=== PATIENT | male | born 1935 | race Caucasian/White ===

== ENCOUNTER 2022-06-28 23:17 | Inpatient (IN) | payer MEDICARE, OTHER ==
[2022-06-29 02:00] VITALS: BMI 24.5
[2022-06-29] MEDS ORDERED: Acetaminophen 325 MG TAB PO PRN (02:29)
[2022-06-29] MEDS ORDERED: Ondansetron PF 4 MG/2 ML Vial IVP PRN (02:29)
[2022-06-29 03:19] LABS: #Eosinphils 0.1 thou/uL (0.0-0.7); #Lymphocytes 1.2 thou/uL (1.20-3.40); #Monocytes 1.2 thou/uL (0.11-0.59); #Neutrophils 6.9 thou/uL (1.40-6.50); %Basophils 0.2 % (0.0-1.0); %Eosinophils 0.6 % (0.0-10.0); %Lymphocytes 12.7 % (21.0-51.0); %Monocytes 12.9 % (0.0-10.0); %Neutrophils 73.6 % (42.0-75.0); Hemoglobin 12.8 g/dL (14.0-18.0); Mean Corpuscular HGB CONC 34.6 g/dL (32.0-36.0); Mean Corpuscular Volume 92.5 fL (78.0-98.0); Mean Platelet Volume 8.4 fL (7.4-10.4); Platelet Count 177 thou/uL (130-400); RBC Distribution Width 11.9 % (11.5-14.5); Red Blood Cell (RBC) Count 3.99 mill/uL (4.70-6.10); White Blood Cell (WBC) Count 9.4 thou/uL (4.8-10.8)
[2022-06-29] MEDS: Cefepime 2 GM in Sodium Chloride 0.9% 100 ML IVPB SCH ×2 (03:57→14:06)
[2022-06-29] MEDS: Vancomycin 1.5 GRAM/300 ML BAG 1.5 GM in Premix Bag 1 BAG IVPB SCH (03:57)
[2022-06-29 04:18] LABS: Anion Gap 14 mmol/L (10-20); BUN (Urea Nitrogen) 14 mg/dL (8.4-25.7); Calc. Creatinine Clearance 66 mL/min (70-130); Calcium 9.4 mg/dL (7.8-10.44); Carbon Dioxide 22 mmol/L (23-31); Chloride 104 mmol/L (98-107); Estimated GFR 68; Glucose 125 mg/dL (83-110); Potassium 3.3 mmol/L (3.5-5.1); Sodium 137 mmol/L (136-145)
[2022-06-29] MEDS ORDERED: Labetalol HCl 100 MG/20 ML VIAL SLOW IVP SCH (04:30)
[2022-06-29] MEDS: Cyclobenzaprine 10 MG TAB PO SCH ×3 (04:33→20:20)
[2022-06-29] MEDS: Ampicillin 2 GM in Sodium Chloride 0.9% 100 ML IVPB SCH ×5 (05:14→20:18)
[2022-06-29] MEDS ORDERED: Potassium Chloride 20 MEQ TAB PO SCH (06:15)
[2022-06-29] MEDS ORDERED: Morphine 4 MG/ML VIAL SLOW IVP SCH (06:15)
[2022-06-29] MEDS: Famotidine 20 MG TAB PO SCH ×2 (08:56→20:19)
[2022-06-29] MEDS: Lisinopril 20 MG TAB PO SCH (08:56)
[2022-06-29] MEDS: Docusate 100 MG CAP PO SCH ×2 (08:56→20:19)
[2022-06-29] MEDS: predniSONE 5 MG TAB PO SCH (08:58)
[2022-06-29] MEDS: Polyethylene Glycol 3350 17 GM Packet PO SCH (08:58)
[2022-06-29] MEDS ORDERED: Enoxaparin Sodium 40 MG/0.4 ML SYRINGE SC SCH (09:00)
[2022-06-29] MEDS: Multivitamin W/ Minerals 1 TAB PO SCH (09:04)
[2022-06-29] MEDS: Cyanocobalamin (Vitamin B-12) 1,000 MCG TAB PO SCH (09:05)
[2022-06-29] MEDS: Ascorbic Acid 500 mg Chewable Tablet PO SCH (09:06)
[2022-06-29] MEDS ORDERED: Ketorolac Tromethamine 30 MG/ML VIAL IVP SCH (09:15)
[2022-06-29] MEDS: Morphine 4 MG/ML VIAL SLOW IVP PRN (09:15)
[2022-06-29] MEDS ORDERED: hydrALAZINE 20 MG/ML VIAL SLOW IVP PRN (13:10)
[2022-06-29] MEDS ORDERED: hydrALAZINE 20 MG/ML VIAL SLOW IVP SCH (13:15)
[2022-06-29 13:29] LABS: CSF, Glucose 75 mg/dl (40-70); CSF, Protein 46 mg/dL (15-40)
[2022-06-29 13:34] LABS: CSF Source CSF; Clarity Clear (Clear); Tube # 4
[2022-06-29] MEDS: Ketorolac Tromethamine 30 MG/ML VIAL IVP SCH ×2 (14:51→20:19)
[2022-06-29] MEDS: Tamsulosin HCl 0.4 MG CAP PO SCH (20:20)
[2022-06-30] MEDS: Ampicillin 2 GM in Sodium Chloride 0.9% 100 ML IVPB SCH ×4 (00:36→14:02)
[2022-06-30] MEDS: Cefepime 2 GM in Sodium Chloride 0.9% 100 ML IVPB SCH ×2 (02:49→15:43)
[2022-06-30] MEDS: Ketorolac Tromethamine 30 MG/ML VIAL IVP SCH ×4 (02:49→21:54)
[2022-06-30] MEDS: Morphine 4 MG/ML VIAL SLOW IVP PRN (03:09)
[2022-06-30] MEDS: Vancomycin 1.5 GRAM/300 ML BAG 1.5 GM in Premix Bag 1 BAG IVPB SCH (03:23)
[2022-06-30 05:12] LABS: #Eosinphils 0.1 thou/uL (0.0-0.7); #Lymphocytes 1.1 thou/uL (1.20-3.40); #Monocytes 0.8 thou/uL (0.11-0.59); #Neutrophils 6.2 thou/uL (1.40-6.50); %Basophils 0.3 % (0.0-1.0); %Eosinophils 0.8 % (0.0-10.0); %Lymphocytes 13.6 % (21.0-51.0); %Monocytes 10.1 % (0.0-10.0); %Neutrophils 75.3 % (42.0-75.0); Hemoglobin 12.4 g/dL (14.0-18.0); Mean Corpuscular HGB CONC 34.3 g/dL (32.0-36.0); Mean Corpuscular Hemoglobin 31.7 pg (27.0-31.0); Mean Corpuscular Volume 92.6 fL (78.0-98.0); Platelet Count 183 thou/uL (130-400); RBC Distribution Width 11.9 % (11.5-14.5); White Blood Cell (WBC) Count 8.2 thou/uL (4.8-10.8)
[2022-06-30 05:34] LABS: Anion Gap 11 mmol/L (10-20); BUN (Urea Nitrogen) 13 mg/dL (8.4-25.7); Calc. Creatinine Clearance 73 mL/min (70-130); Calcium 9.1 mg/dL (7.8-10.44); Carbon Dioxide 21 mmol/L (23-31); Chloride 107 mmol/L (98-107); Estimated GFR 77; Glucose 107 mg/dL (83-110); Magnesium 1.9 mg/dL (1.6-2.6); Sodium 136 mmol/L (136-145)
[2022-06-30] MEDS: Cyclobenzaprine 10 MG TAB PO SCH ×3 (05:46→21:45)
[2022-06-30] MEDS ORDERED: Potassium Chloride 20 MEQ TAB PO SCH (09:00)
[2022-06-30] MEDS: Polyethylene Glycol 3350 17 GM Packet PO SCH (09:51)
[2022-06-30] MEDS: Lisinopril 20 MG TAB PO SCH (09:53)
[2022-06-30] MEDS: Ascorbic Acid 500 mg Chewable Tablet PO SCH (09:53)
[2022-06-30] MEDS: predniSONE 5 MG TAB PO SCH (09:54)
[2022-06-30] MEDS: Docusate 100 MG CAP PO SCH ×2 (09:54→21:45)
[2022-06-30] MEDS: Cyanocobalamin (Vitamin B-12) 1,000 MCG TAB PO SCH (09:54)
[2022-06-30] MEDS: Famotidine 20 MG TAB PO SCH ×2 (09:55→21:45)
[2022-06-30] MEDS: Multivitamin W/ Minerals 1 TAB PO SCH (09:55)
[2022-06-30] MEDS: Potassium Chloride 20 MEQ TAB PO SCH (17:58)
[2022-06-30] MEDS: Tamsulosin HCl 0.4 MG CAP PO SCH (21:45)
[2022-07-01 03:19] LABS: #Eosinphils 0.1 thou/uL (0.0-0.7); #Lymphocytes 1.3 thou/uL (1.20-3.40); #Monocytes 0.7 thou/uL (0.11-0.59); #Neutrophils 5.7 thou/uL (1.40-6.50); %Basophils 0.5 % (0.0-1.0); %Eosinophils 1.6 % (0.0-10.0); %Lymphocytes 16.1 % (21.0-51.0); %Monocytes 9.1 % (0.0-10.0); %Neutrophils 72.7 % (42.0-75.0); Hemoglobin 11.5 g/dL (14.0-18.0); Mean Corpuscular HGB CONC 33.9 g/dL (32.0-36.0); Mean Corpuscular Hemoglobin 31.2 pg (27.0-31.0); Mean Corpuscular Volume 92.1 fL (78.0-98.0); Mean Platelet Volume 7.6 fL (7.4-10.4); Platelet Count 179 thou/uL (130-400); RBC Distribution Width 11.9 % (11.5-14.5); Red Blood Cell (RBC) Count 3.68 mill/uL (4.70-6.10); White Blood Cell (WBC) Count 7.9 thou/uL (4.8-10.8)
[2022-07-01 03:37] LABS: Vancomycin, Trough 8.1 ug/mL
[2022-07-01 03:45] LABS: Anion Gap 13 mmol/L (10-20); BUN (Urea Nitrogen) 25 mg/dL (8.4-25.7); Calc. Creatinine Clearance 61 mL/min (70-130); Calcium 9.1 mg/dL (7.8-10.44); Carbon Dioxide 20 mmol/L (23-31); Chloride 107 mmol/L (98-107); Estimated GFR 61; Glucose 110 mg/dL (83-110); Magnesium 2.1 mg/dL (1.6-2.6); Potassium 3.7 mmol/L (3.5-5.1); Sodium 136 mmol/L (136-145)
[2022-07-01] MEDS: Ketorolac Tromethamine 30 MG/ML VIAL IVP SCH ×2 (04:41→11:07)
[2022-07-01] MEDS: Cyclobenzaprine 10 MG TAB PO SCH ×2 (07:42→14:29)
[2022-07-01] MEDS: Polyethylene Glycol 3350 17 GM Packet PO SCH (09:47)
[2022-07-01] MEDS: Multivitamin W/ Minerals 1 TAB PO SCH (09:47)
[2022-07-01] MEDS: predniSONE 5 MG TAB PO SCH (09:48)
[2022-07-01] MEDS: Ascorbic Acid 500 mg Chewable Tablet PO SCH (09:48)
[2022-07-01] MEDS: Lisinopril 20 MG TAB PO SCH (09:48)
[2022-07-01] MEDS: Cyanocobalamin (Vitamin B-12) 1,000 MCG TAB PO SCH (09:48)
[2022-07-01] MEDS: Famotidine 20 MG TAB PO SCH (09:49)
[2022-07-01] MEDS: Potassium Chloride 20 MEQ TAB PO SCH (09:49)
[2022-07-01] MEDS: Docusate 100 MG CAP PO SCH (09:50)
[2022-07-01 15:58] VITALS: TEMP 97.2
[2022-07-01 19:59] VITALS: BP 149/73
== END 2022-07-01 16:15 | disposition home or self-care (01) | DRG 552 ==
LOC: 2SW 23:17 → OBSVTOIN 06-29 18:21
PROVIDERS: ADMIT Internal Medicine; ATTEND Family Medicine
PROC: 009U3ZX Drainage of Spinal Canal, Percutaneous Approach, Diagnostic (ICD-10-PCS; principal; 2022-06-29)
PROC: B01BZZZ Fluoroscopy of Spinal Cord (ICD-10-PCS; 2022-06-29)
DX: M54.2 Cervicalgia (principal); C79.51 Secondary malignant neoplasm of bone; D84.821 Immunodeficiency due to drugs; Z20.822 Contact with and (suspected) exposure to COVID-19; I10 Essential (primary) hypertension; C61 Malignant neoplasm of prostate; K59.00 Constipation, unspecified; Z96.651 Presence of right artificial knee joint; F17.210 Nicotine dependence, cigarettes, uncomplicated; E87.6 Hypokalemia; I48.0 Paroxysmal atrial fibrillation; E78.00 Pure hypercholesterolemia, unspecified; Z88.5 Allergy status to narcotic agent; Z79.899 Other long term (current) drug therapy; Z79.51 Long term (current) use of inhaled steroids; Z98.890 Other specified postprocedural states
CPT/HCPCS: 36415; 62270; 70450; 71045; 72125; 80048; 80053; 80202; 82945; 83735; 84153; 84157; 84443; 84484; 85025; 87040; 87070; 87205; 89051; 93005; 93306; 96365; 96366; 96367; 96374; 96375; 96376; G0378; J0290; J0360; J0692; J1885; J2270; J3010; J3370; J3490; J7512; U0003; U0005

== ENCOUNTER 2022-08-26 06:06 | Day surgery (SDC) | payer MEDICARE, OTHER ==
[2022-08-25 10:45] VITALS: BMI 26.5
[2022-08-26] MEDS ORDERED: Protamine Sulfate 50 MG/5 ML VIAL ONE (07:10)
[2022-08-26] MEDS ORDERED: Heparin 25,000 units/D5W 0 ML ONE (07:10)
[2022-08-26] MEDS ORDERED: Heparin 10,000 UNITS/ 10 ML VIAL ONE (07:10)
[2022-08-26] MEDS ORDERED: FENTANYL 50 MCG/ML 1 ML VIAL ONE ×2 (07:50→07:51)
[2022-08-26] MEDS ORDERED: PHENYLEPHRINE-NS 100 MCG/ML 10 ML SYRINGE ONE (08:04)
[2022-08-26] MEDS ORDERED: Succinylcholine Chloride 200 MG/10 ML VIAL ONE (08:04)
[2022-08-26] MEDS ORDERED: Dexamethasone 20 MG/5 ML VIAL ONE (08:04)
[2022-08-26] MEDS ORDERED: Ondansetron PF 4 MG/2 ML Vial ONE (08:04)
[2022-08-26] MEDS ORDERED: PROPOFOL 200 MG/20 ML VIAL ONE (08:04)
[2022-08-26] MEDS ORDERED: ePHEDrine 50 MG/ML VIAL ONE ×2 (08:04)
[2022-08-26] MEDS ORDERED: Isoproterenol 0.2 MG/1 ML AMP ONE (08:25)
[2022-08-26] MEDS ORDERED: Amiodarone 150 MG/3 ML VIAL ONE (10:18)
== END 2022-08-26 14:34 | disposition home or self-care (01) ==
LOC: SDC 06:06
PROVIDERS: ATTEND Internal Medicine Cardiovascular Disease
PROC: B246ZZ4 Ultrasonography of Right and Left Heart, Transesophageal (ICD-10-PCS; principal; 2022-08-26)
PROC: B244ZZ3 Ultrasonography of Right Heart, Intravascular (ICD-10-PCS; 2022-08-26)
PROC: 02583ZZ Destruction of Conduction Mechanism, Percutaneous Approach (ICD-10-PCS; 2022-08-26)
PROC: 02K83ZZ Map Conduction Mechanism, Percutaneous Approach (ICD-10-PCS; 2022-08-26)
PROC: 4A023FZ Measurement of Cardiac Rhythm, Percutaneous Approach (ICD-10-PCS; 2022-08-26)
PROC: 4A0234Z Measurement of Cardiac Electrical Activity, Percutaneous Approach (ICD-10-PCS; 2022-08-26)
DX: I48.3 Typical atrial flutter (principal); I48.0 Paroxysmal atrial fibrillation; I70.0 Atherosclerosis of aorta; I47.1 Supraventricular tachycardia; I35.8 Other nonrheumatic aortic valve disorders; I25.10 Atherosclerotic heart disease of native coronary artery without angina pectoris; E78.5 Hyperlipidemia, unspecified; I10 Essential (primary) hypertension; J44.9 Chronic obstructive pulmonary disease, unspecified; K21.9 Gastro-esophageal reflux disease without esophagitis; N40.0 Benign prostatic hyperplasia without lower urinary tract symptoms; M19.90 Unspecified osteoarthritis, unspecified site; C61 Malignant neoplasm of prostate; C79.51 Secondary malignant neoplasm of bone; Z79.01 Long term (current) use of anticoagulants; Z79.52 Long term (current) use of systemic steroids; Z79.899 Other long term (current) drug therapy; Z88.5 Allergy status to narcotic agent
CPT/HCPCS: 93005; 93312; 93653; 93662; J3010; C1731; C1759; C1760; C1769; C1894; C2630; J0282; J0330; J1100; J1644; J2405; J2704; J2720; J3490

== ENCOUNTER 2023-01-08 06:33 | Inpatient (IN) | payer MEDICARE, OTHER ==
[2023-01-08] MEDS ORDERED: Magnesium 2 GM/50 ML BAG (IN WATER) ONE (07:13)
[2023-01-08] MEDS ORDERED: Digoxin 0.5 MG/2 ML AMP ONE (07:13)
[2023-01-08 07:34] LABS: #Lymphocytes 1.4 thou/uL (1.20-3.40); #Neutrophils 10.3 thou/uL (1.40-6.50); %Eosinophils 0.2 % (0.0-10.0); %Lymphocytes 10.7 % (21.0-51.0); %Monocytes 7.8 % (0.0-10.0); %Neutrophils 81.3 % (42.0-75.0); Hemoglobin 14.5 g/dL (14.0-18.0); Mean Corpuscular HGB CONC 33.9 g/dL (32.0-36.0); Mean Corpuscular Hemoglobin 29.9 pg (27.0-31.0); Mean Corpuscular Volume 88.1 fl (78.0-98.0); Mean Platelet Volume 8.2 fL (7.4-10.4); Platelet Count 210 10x3/uL (130-400); RBC Distribution Width 13.9 % (11.5-14.5); Red Blood Cell (RBC) Count 4.85 mill/uL (4.70-6.10); White Blood Cell (WBC) Count 12.6 10x3/uL (4.8-10.8)
[2023-01-08] MEDS ORDERED: Mag-Al 1200 mg/1200 mg/30 ML UDCUP ONE (07:42)
[2023-01-08 07:58] LABS: AST (SGOT) 18 U/L (5-34); Anion Gap 14 mmol/L (10-20); Bilirubin, Total 0.5 mg/dL (0.2-1.2); Calcium 8.5 mg/dL (7.8-10.44); Carbon Dioxide 18 mmol/L (23-31); Chloride 105 mmol/L (98-107); Protein, Total 4.9 g/dL (5.8-8.1); Sodium 134 mmol/L (136-145)
[2023-01-08] MEDS ORDERED: Lidocaine 2% Viscous Solution 10 ML, Aluminum & Magnesium Hydroxide 30 ML SSW SCH (08:00)
[2023-01-08 08:07] LABS: ALT (SGPT) 14 U/L (8-55); Albumin 2.8 g/dL (3.4-4.8); Alkaline Phosphatase 52 U/L (40-110); BUN (Urea Nitrogen) 21 mg/dL (8.4-25.7); Calc. Creatinine Clearance 0 mL/min (70-130); Estimated GFR 83; Globulin 2.1 g/dL (2.4-3.5); Glucose 132 mg/dL (83-110); Lipase 8 U/L (8-78)
[2023-01-08 08:11] LABS: CKMB 2.1 ng/mL (0-6.6)
[2023-01-08 08:18] LABS: CK (CPK) 97 U/L (30-200)
[2023-01-08] MEDS ORDERED: Potassium Chloride 20 MEQ TAB ONE (08:34)
[2023-01-08] MEDS ORDERED: Potassium Bicarbonate/Cit Ac 20 MEQ TAB PO SCH (09:00)
[2023-01-08 09:19] LABS: SARS-CoV-2 NAA Rapid Test Not Detected (NotDetected)
[2023-01-08 09:22] LABS: Bilirubin Negative (Negative); Blood, Urine Negative (Negative); Clarity Clear (Clear); Glucose, Urine (Dipstick) 30 mg/dL (Negative); Ketone, Urine 10 mg/dL (Negative); Leukocyte Negative Leu/uL (Negative); Nitrite Negative (Negative); Protein, Urine (Dipstick) 10 mg/dL (Neg-Trace); Specific Gravity, Urine 1.011 (1.002-1.036); Urobilinogen Normal mg/dL (Less than 2)
[2023-01-08] MEDS ORDERED: Diltiazem 125 MG/25 ML SDV ONE ×2 (09:28→09:32)
[2023-01-08] MEDS ORDERED: Diltiazem 125 MG in Sodium Chloride 0.9% 100 ML IVPB SCH (10:15)
[2023-01-08 10:57] LABS: Troponin I 0.063 ng/mL (< 0.028)
[2023-01-08 11:09] LABS: Magnesium 1.9 mg/dL (1.6-2.6)
[2023-01-08] MEDS: Ondansetron PF 4 MG/2 ML Vial IVP PRN (12:51)
[2023-01-08 12:59] VITALS: BMI 25.8
[2023-01-08 14:48] LABS: Troponin I 0.105 ng/mL (< 0.028)
[2023-01-08] MEDS: Ondansetron ODT 4 MG TAB PO PRN (21:05)
[2023-01-09] MEDS ORDERED: traZODone HCl 50 MG TAB PO SCH (00:30)
[2023-01-09] MEDS ORDERED: Apixaban 5 MG TAB PO SCH ×2 (00:30→09:00)
[2023-01-09 04:44] LABS: #Lymphocytes 1.4 thou/uL (1.20-3.40); #Monocytes 0.9 thou/uL (0.11-0.59); %Basophils 0.1 % (0.0-1.0); %Eosinophils 0.2 % (0.0-10.0); %Lymphocytes 12.2 % (21.0-51.0); %Neutrophils 79.6 % (42.0-75.0); Hemoglobin 12.3 g/dL (14.0-18.0); Mean Corpuscular HGB CONC 34.6 g/dL (32.0-36.0); Mean Corpuscular Hemoglobin 30.2 pg (27.0-31.0); Mean Corpuscular Volume 87.3 fl (78.0-98.0); Mean Platelet Volume 8.3 fL (7.4-10.4); Platelet Count 181 10x3/uL (130-400); RBC Distribution Width 13.8 % (11.5-14.5); Red Blood Cell (RBC) Count 4.08 mill/uL (4.70-6.10); White Blood Cell (WBC) Count 11.3 10x3/uL (4.8-10.8)
[2023-01-09 05:08] LABS: Anion Gap 8 mmol/L (10-20); BUN (Urea Nitrogen) 18 mg/dL (8.4-25.7); Calc. Creatinine Clearance 86 mL/min (70-130); Calcium 8.2 mg/dL (7.8-10.44); Carbon Dioxide 22 mmol/L (23-31); Chloride 104 mmol/L (98-107); Estimated GFR 85; Glucose 100 mg/dL (83-110); Sodium 131 mmol/L (136-145)
[2023-01-09] MEDS: Mag-Al Plus 1200 MG/1200 MG/120 MG/30 ML UDCUP PO PRN ×3 (07:38→22:23)
[2023-01-09] MEDS: Ondansetron PF 4 MG/2 ML Vial IVP PRN (15:34)
[2023-01-09] MEDS: Albuterol HFA (OR) 200 PUFF INH INH SCH (19:51)
[2023-01-09] MEDS: Lisinopril 5 MG TAB PO SCH (21:12)
[2023-01-09] MEDS: Acetaminophen 325 MG TAB PO PRN (21:28)
[2023-01-09] MEDS: Tamsulosin HCl 0.4 MG CAP PO SCH (21:29)
[2023-01-09] MEDS: Atorvastatin Calcium 10 MG TAB PO SCH (21:29)
[2023-01-09] MEDS ORDERED: Promethazine HCl 6.25 MG in Sodium Chloride 0.9% 50 ML IVPB PRN (22:19)
[2023-01-10] MEDS: Ondansetron ODT 4 MG TAB PO PRN (03:10)
[2023-01-10 05:29] LABS: #Eosinphils 0.1 thou/uL (0.0-0.7); #Lymphocytes 1.4 thou/uL (1.20-3.40); #Monocytes 1.1 thou/uL (0.11-0.59); #Neutrophils 7.9 thou/uL (1.40-6.50); %Basophils 0.3 % (0.0-1.0); %Eosinophils 0.8 % (0.0-10.0); %Monocytes 10.7 % (0.0-10.0); %Neutrophils 75.3 % (42.0-75.0); Hemoglobin 11.8 g/dL (14.0-18.0); Mean Corpuscular HGB CONC 34.6 g/dL (32.0-36.0); Mean Corpuscular Hemoglobin 30.5 pg (27.0-31.0); Mean Corpuscular Volume 88.3 fl (78.0-98.0); Mean Platelet Volume 8.4 fL (7.4-10.4); Platelet Count 170 10x3/uL (130-400); RBC Distribution Width 13.8 % (11.5-14.5); Red Blood Cell (RBC) Count 3.87 mill/uL (4.70-6.10); White Blood Cell (WBC) Count 10.4 10x3/uL (4.8-10.8)
[2023-01-10 05:48] LABS: Anion Gap 9 mmol/L (10-20); BUN (Urea Nitrogen) 17 mg/dL (8.4-25.7); Calc. Creatinine Clearance 88 mL/min (70-130); Calcium 8.1 mg/dL (7.8-10.44); Carbon Dioxide 21 mmol/L (23-31); Chloride 102 mmol/L (98-107); Estimated GFR 86; Glucose 91 mg/dL (83-110); Potassium 2.9 mmol/L (3.5-5.1); Sodium 129 mmol/L (136-145)
[2023-01-10] MEDS ORDERED: Potassium Chloride 20 MEQ TAB PO SCH (07:15)
[2023-01-10] MEDS ORDERED: Sodium Chloride 0.9% 1,000 ML IV SCH (07:15)
[2023-01-10] MEDS: Albuterol HFA (OR) 200 PUFF INH INH SCH ×4 (08:11→19:54)
[2023-01-10] MEDS: Lisinopril 5 MG TAB PO SCH ×2 (09:29→21:54)
[2023-01-10] MEDS: Abiraterone Acetate [Zytiga] 250 MG Tablet PO SCH (09:30)
[2023-01-10] MEDS: Apixaban 5 MG TAB PO SCH ×2 (09:30→21:56)
[2023-01-10] MEDS: Multivit, Therapeutic 1 TAB PO SCH (09:30)
[2023-01-10] MEDS: Potassium Bicarbonate/Cit Ac 20 MEQ TAB PO SCH ×3 (11:41→21:58)
[2023-01-10] MEDS: Metoprolol Tartrate 25 MG TAB PO SCH (21:54)
[2023-01-10] MEDS: Tamsulosin HCl 0.4 MG CAP PO SCH (21:56)
[2023-01-10] MEDS: Atorvastatin Calcium 10 MG TAB PO SCH (21:56)
[2023-01-11 06:30] LABS: #Eosinphils 0.2 thou/uL (0.0-0.7); #Lymphocytes 1.5 thou/uL (1.20-3.40); #Monocytes 0.8 thou/uL (0.11-0.59); #Neutrophils 5.4 thou/uL (1.40-6.50); %Basophils 0.1 % (0.0-1.0); %Lymphocytes 18.5 % (21.0-51.0); %Monocytes 9.7 % (0.0-10.0); %Neutrophils 69.6 % (42.0-75.0); Hemoglobin 10.7 g/dL (14.0-18.0); Mean Corpuscular HGB CONC 35.3 g/dL (32.0-36.0); Mean Corpuscular Hemoglobin 30.5 pg (27.0-31.0); Mean Corpuscular Volume 86.6 fl (78.0-98.0); Mean Platelet Volume 7.9 fL (7.4-10.4); Platelet Count 172 10x3/uL (130-400); RBC Distribution Width 13.4 % (11.5-14.5); Red Blood Cell (RBC) Count 3.52 mill/uL (4.70-6.10); White Blood Cell (WBC) Count 7.8 10x3/uL (4.8-10.8)
[2023-01-11 06:48] LABS: Anion Gap 8 mmol/L (10-20); BUN (Urea Nitrogen) 11 mg/dL (8.4-25.7); Calc. Creatinine Clearance 81 mL/min (70-130); Calcium 8.1 mg/dL (7.8-10.44); Carbon Dioxide 24 mmol/L (23-31); Chloride 102 mmol/L (98-107); Estimated GFR 84; Glucose 92 mg/dL (83-110); Potassium 3.2 mmol/L (3.5-5.1); Sodium 131 mmol/L (136-145)
[2023-01-11] MEDS ORDERED: Ketamine 50 MG/ML (10ML VIAL) ONE (07:27)
[2023-01-11] MEDS ORDERED: PROPOFOL 200 MG/20 ML VIAL ONE (08:08)
[2023-01-11] MEDS ORDERED: Ondansetron HCl/PF 4 MG/2 ML Vial IVP PRN (08:28)
[2023-01-11] MEDS ORDERED: Promethazine HCl 25 MG/ML VIAL IM PRN (08:28)
[2023-01-11] MEDS: Albuterol HFA (OR) 200 PUFF INH INH SCH ×4 (08:40→19:06)
[2023-01-11] MEDS: Metoprolol Tartrate 25 MG TAB PO SCH ×2 (09:34→21:03)
[2023-01-11] MEDS: Lisinopril 5 MG TAB PO SCH ×2 (09:34→21:03)
[2023-01-11] MEDS: Multivit, Therapeutic 1 TAB PO SCH (09:34)
[2023-01-11] MEDS: Abiraterone Acetate [Zytiga] 250 MG Tablet PO SCH (09:35)
[2023-01-11] MEDS ORDERED: Potassium Bicarbonate/Cit Ac 20 MEQ TAB PO SCH (12:15)
[2023-01-11] MEDS: Mag-Al Plus 1200 MG/1200 MG/120 MG/30 ML UDCUP PO PRN (21:03)
[2023-01-11] MEDS: Tamsulosin HCl 0.4 MG CAP PO SCH (21:03)
[2023-01-11] MEDS: Atorvastatin Calcium 10 MG TAB PO SCH (21:03)
[2023-01-12 06:00] LABS: #Eosinphils 0.2 thou/uL (0.0-0.7); #Lymphocytes 1.3 thou/uL (1.20-3.40); #Monocytes 0.7 thou/uL (0.11-0.59); #Neutrophils 4.2 thou/uL (1.40-6.50); %Basophils 0.4 % (0.0-1.0); %Eosinophils 3.7 % (0.0-10.0); %Lymphocytes 20.7 % (21.0-51.0); %Monocytes 10.9 % (0.0-10.0); %Neutrophils 64.3 % (42.0-75.0); Hemoglobin 10.5 g/dL (14.0-18.0); Mean Corpuscular HGB CONC 34.5 g/dL (32.0-36.0); Mean Corpuscular Hemoglobin 29.9 pg (27.0-31.0); Mean Corpuscular Volume 86.5 fl (78.0-98.0); Mean Platelet Volume 7.9 fL (7.4-10.4); Platelet Count 201 10x3/uL (130-400); RBC Distribution Width 13.4 % (11.5-14.5); Red Blood Cell (RBC) Count 3.53 mill/uL (4.70-6.10); White Blood Cell (WBC) Count 6.5 10x3/uL (4.8-10.8)
[2023-01-12 06:13] LABS: Anion Gap 9 mmol/L (10-20); BUN (Urea Nitrogen) 9 mg/dL (8.4-25.7); Calc. Creatinine Clearance 86 mL/min (70-130); Calcium 8.2 mg/dL (7.8-10.44); Carbon Dioxide 23 mmol/L (23-31); Chloride 102 mmol/L (98-107); Estimated GFR 85; Glucose 100 mg/dL (83-110); Potassium 2.8 mmol/L (3.5-5.1); Sodium 131 mmol/L (136-145)
[2023-01-12] MEDS: Albuterol HFA (OR) 200 PUFF INH INH SCH ×2 (07:12→10:09)
[2023-01-12] MEDS ORDERED: Electrolyte Replacement Protocol 1 EACH FS SCH (08:00)
[2023-01-12] MEDS ORDERED: Potassium Chloride 20 MEQ TAB PO SCH (08:00)
[2023-01-12] MEDS ORDERED: Magnesium 2 GM/50 ML(in water) 2 GM in Premix Bag 1 BAG IVPB SCH (08:00)
[2023-01-12] MEDS ORDERED: Potassium Chloride 40 MEQ in Premix Bag 1 BAG IVPB SCH (08:00)
[2023-01-12] MEDS: Multivit, Therapeutic 1 TAB PO SCH (08:51)
[2023-01-12] MEDS: Lisinopril 5 MG TAB PO SCH ×2 (08:51→20:46)
[2023-01-12] MEDS: Abiraterone Acetate [Zytiga] 250 MG Tablet PO SCH (08:51)
[2023-01-12] MEDS: Metoprolol Tartrate 25 MG TAB PO SCH ×2 (08:51→20:46)
[2023-01-12] MEDS: Potassium Chloride 20 MEQ in Premix Bag 1 BAG IVPB SCH ×2 (11:07→14:41)
[2023-01-12] MEDS: Albuterol 200 PUFF (6.7GM INHALER) INH SCH ×2 (12:26→18:44)
[2023-01-12 14:57] LABS: Anion Gap 10 mmol/L (10-20); BUN (Urea Nitrogen) 8 mg/dL (8.4-25.7); Calc. Creatinine Clearance 87 mL/min (70-130); Calcium 8.5 mg/dL (7.8-10.44); Carbon Dioxide 25 mmol/L (23-31); Chloride 102 mmol/L (98-107); Estimated GFR 85; Glucose 101 mg/dL (83-110); Potassium 3.3 mmol/L (3.5-5.1); Sodium 134 mmol/L (136-145)
[2023-01-12] MEDS: Mag-Al Plus 1200 MG/1200 MG/120 MG/30 ML UDCUP PO PRN (20:46)
[2023-01-12] MEDS: Tamsulosin HCl 0.4 MG CAP PO SCH (20:46)
[2023-01-12] MEDS: Acetaminophen 325 MG TAB PO PRN (20:46)
[2023-01-12] MEDS: Atorvastatin Calcium 10 MG TAB PO SCH (20:46)
[2023-01-13 06:25] LABS: #Eosinphils 0.1 thou/uL (0.0-0.7); #Lymphocytes 1.2 thou/uL (1.20-3.40); #Monocytes 0.6 thou/uL (0.11-0.59); #Neutrophils 4.4 thou/uL (1.40-6.50); %Basophils 0.2 % (0.0-1.0); %Eosinophils 1.3 % (0.0-10.0); %Lymphocytes 18.8 % (21.0-51.0); %Neutrophils 70.7 % (42.0-75.0); Hemoglobin 10.8 g/dL (14.0-18.0); Mean Corpuscular HGB CONC 34.8 g/dL (32.0-36.0); Mean Corpuscular Hemoglobin 30.1 pg (27.0-31.0); Mean Corpuscular Volume 86.5 fl (78.0-98.0); Mean Platelet Volume 7.7 fL (7.4-10.4); Platelet Count 257 10x3/uL (130-400); RBC Distribution Width 13.4 % (11.5-14.5); Red Blood Cell (RBC) Count 3.58 mill/uL (4.70-6.10); White Blood Cell (WBC) Count 6.2 10x3/uL (4.8-10.8)
[2023-01-13] MEDS: Albuterol 200 PUFF (6.7GM INHALER) INH SCH ×3 (06:27→18:22)
[2023-01-13 06:32] LABS: Anion Gap 7 mmol/L (10-20); BUN (Urea Nitrogen) 8 mg/dL (8.4-25.7); Calc. Creatinine Clearance 85 mL/min (70-130); Calcium 8.3 mg/dL (7.8-10.44); Carbon Dioxide 24 mmol/L (23-31); Chloride 104 mmol/L (98-107); Estimated GFR 85; Glucose 139 mg/dL (83-110); Potassium 3.4 mmol/L (3.5-5.1); Sodium 132 mmol/L (136-145)
[2023-01-13] MEDS ORDERED: Magnesium 2 GM/50 ML(in water) 2 GM in Premix Bag 1 BAG IVPB SCH (08:00)
[2023-01-13] MEDS ORDERED: Potassium Chloride 20 MEQ TAB PO SCH (08:00)
[2023-01-13] MEDS: Multivit, Therapeutic 1 TAB PO SCH (09:05)
[2023-01-13] MEDS: Metoprolol Tartrate 25 MG TAB PO SCH ×2 (09:05→21:50)
[2023-01-13] MEDS: Lisinopril 5 MG TAB PO SCH ×2 (09:05→21:51)
[2023-01-13] MEDS ORDERED: Ondansetron PF 4 MG/2 ML Vial IVP PRN (20:50)
[2023-01-13] MEDS ORDERED: Mag-Al Plus 1200 MG/1200 MG/120 MG/30 ML UDCUP PO PRN (20:50)
[2023-01-13] MEDS ORDERED: Acetaminophen 325 MG TAB PO PRN (20:50)
[2023-01-13] MEDS ORDERED: Ondansetron ODT 4 MG TAB PO PRN (20:50)
[2023-01-13] MEDS ORDERED: Electrolyte Replacement Protocol 1 EACH FS SCH (21:00)
[2023-01-13] MEDS: Abiraterone Acetate [Zytiga] 250 MG Tablet PO SCH (21:40)
[2023-01-13] MEDS: Tamsulosin HCl 0.4 MG CAP PO SCH (21:50)
[2023-01-13] MEDS: Atorvastatin Calcium 10 MG TAB PO SCH (21:51)
[2023-01-14] MEDS: Albuterol 200 PUFF (6.7GM INHALER) INH SCH ×2 (07:00→14:15)
[2023-01-14] MEDS: Metoprolol Tartrate 25 MG TAB PO SCH ×2 (10:00→21:16)
[2023-01-14] MEDS: Multivit, Therapeutic 1 TAB PO SCH (10:01)
[2023-01-14] MEDS: Lisinopril 5 MG TAB PO SCH ×2 (10:01→21:16)
[2023-01-14] MEDS: Abiraterone Acetate [Zytiga] 250 MG Tablet PO SCH (10:04)
[2023-01-14] MEDS: Atorvastatin Calcium 10 MG TAB PO SCH (21:17)
[2023-01-14] MEDS: Tamsulosin HCl 0.4 MG CAP PO SCH (21:17)
[2023-01-15] MEDS: Albuterol 200 PUFF (6.7GM INHALER) INH SCH ×4 (00:15→13:57)
[2023-01-15 06:24] LABS: Anion Gap 9 mmol/L (10-20); BUN (Urea Nitrogen) 14 mg/dL (8.4-25.7); Calc. Creatinine Clearance 72 mL/min (70-130); Calcium 8.4 mg/dL (7.8-10.44); Carbon Dioxide 25 mmol/L (23-31); Chloride 105 mmol/L (98-107); Estimated GFR 75; Glucose 103 mg/dL (83-110); Magnesium 1.9 mg/dL (1.6-2.6); Potassium 3.7 mmol/L (3.5-5.1); Sodium 135 mmol/L (136-145)
[2023-01-15] MEDS ORDERED: Magnesium 2 GM/50 ML(in water) 2 GM in Premix Bag 1 BAG IVPB SCH (08:00)
[2023-01-15] MEDS: Multivit, Therapeutic 1 TAB PO SCH (08:48)
[2023-01-15] MEDS: Lisinopril 5 MG TAB PO SCH (08:48)
[2023-01-15] MEDS: Metoprolol Tartrate 25 MG TAB PO SCH (08:48)
[2023-01-15] MEDS: Abiraterone Acetate [Zytiga] 250 MG Tablet PO SCH (09:05)
[2023-01-15 17:11] VITALS: BP 169/94; TEMP 97.7
== END 2023-01-15 15:30 | DRG 309 ==
LOC: ERS 06:33 → ERHOLD 09:55 → 2NO 13:29 → SJJU 01-10 13:54 → UNDODISIN 01-11 09:43
PROVIDERS: ADMIT Family Medicine; ATTEND Internal Medicine
PROC: 0DJ08ZZ Inspection of Upper Intestinal Tract, Via Natural or Artificial Opening Endoscopic (ICD-10-PCS; principal; 2023-01-11)
DX: I48.0 Paroxysmal atrial fibrillation (principal); C79.51 Secondary malignant neoplasm of bone; K22.10 Ulcer of esophagus without bleeding; E87.1 Hypo-osmolality and hyponatremia; I10 Essential (primary) hypertension; Z96.651 Presence of right artificial knee joint; C61 Malignant neoplasm of prostate; E86.0 Dehydration; E87.6 Hypokalemia; K44.9 Diaphragmatic hernia without obstruction or gangrene; K21.9 Gastro-esophageal reflux disease without esophagitis; Z79.52 Long term (current) use of systemic steroids; Z88.5 Allergy status to narcotic agent; Z79.899 Other long term (current) drug therapy; Z79.01 Long term (current) use of anticoagulants
CPT/HCPCS: 36415; 71045; 80048; 80053; 81003; 82550; 82553; 83690; 83735; 83880; 84484; 85025; 93005; 96361; 96365; 96366; 96367; 96375; 96376; J1160; J2405; J2550; J2704; J3475; J3480; J3490; J7050; Q0162

== ENCOUNTER 2024-09-05 11:39 | Inpatient (IN) | payer MEDICARE ==
[2024-09-05] MEDS ORDERED: NOREPINEPHRINE 8 MG/250 ML-D5W 250 ML ONE (11:45)
[2024-09-05] MEDS ORDERED: fentaNYL 50 mcg/mL 1 mL Vial ONE ×2 (11:55→12:24)
[2024-09-05] MEDS ORDERED: Fentanyl CADD 100 ML IV SCH (12:15)
[2024-09-05 12:28] LABS: Actual Bicarbonate (HCO3a) 16.9 mEq/L (22-28); Analyzer IN Cardio ER; Base Excess (BEa) -8.4 mEq/L (-2.0 to +3.0); Calcium, Ionized (arterial) 1.12 mmol/L (1.12-1.30); Hematocrit-ABG 35 % (42.0-52.0); Hemoglobin (Hb) 11.8 g/dL (14.0-18.0); Potassium - ABG Lab 3.29 mmol/L (3.70-5.30); pH, Arterial 7.313 (7.35-7.45)
[2024-09-05 12:29] LABS: Puncture Site Left Radial artery
[2024-09-05 12:45] LABS: Bacteria/HPF None Seen HPF (None Seen); Bilirubin Negative (Negative); Blood, Urine 1+ (Negative); CAUTI Indications for Culture Urological Procedure; Clarity Turbid (Clear); Glucose, Urine (Dipstick) Normal (Negative); Ketone, Urine Negative (Negative); Leukocyte Negative Leu/uL (Negative); Nitrite Negative (Negative); Protein, Urine (Dipstick) 30 mg/dL (Neg-Trace); RBC/HPF 0-3 HPF (0-3); Specific Gravity, Urine 1.015 (1.002-1.036); Squamous Epithelial 0-3 HPF (0-3); Urobilinogen Normal mg/dL (Less than 2); WBC/HPF 0-3 HPF (0-3); pH, Urine 5.5 (5.0-9.0)
[2024-09-05 12:47] LABS: Urine Culture Reflex Yes Yes
[2024-09-05] MEDS ORDERED: LevoFLOXacin 750 mg/D5W 150 ml Premix Bag ONE (13:00)
[2024-09-05] MEDS ORDERED: Cefepime 2 GM VIAL ONE (13:00)
[2024-09-05] MEDS ORDERED: Sodium Chloride 0.9% 100 ML ONE (13:00)
[2024-09-05] MEDS ORDERED: Vancomycin (BATCH) 2 GM/500 ML BAG ONE (13:01)
[2024-09-05 13:06] LABS: #Basophils 0.03 10x3/uL (0.0-0.2); %Basophils 0.4 % (0.0-1.0); %Eosinophils 1.4 % (0.0-10.0); %Monocytes 4.3 % (0.0-10.0); %Neutrophils 86.3 % (42.0-75.0); Hematocrit 32.1 % (42.0-52.0); Hemoglobin 10.9 g/dL (14.0-18.0); Mean Corpuscular Hemoglobin 30.4 pg (27.0-31.0); Mean Corpuscular Volume 89.4 fL (78.0-98.0); Mean Platelet Volume 10.1 fL (7.4-10.4); Platelet Count 205 10x3/uL (130-400); RBC Distribution Width 13.8 % (11.5-14.5); Red Blood Cell (RBC) Count 3.59 mill/uL (4.70-6.10)
[2024-09-05 13:26] LABS: ALT (SGPT) 18 U/L (8-55); AST (SGOT) 43 U/L (5-34); Albumin 2.4 g/dL (3.4-4.8); Alkaline Phosphatase 56 U/L (40-110); Anion Gap 13 mmol/L (10-20); BUN (Urea Nitrogen) 30 mg/dL (8.4-25.7); Bilirubin, Total 1.2 mg/dL (0.2-1.2); Calc. Creatinine Clearance 0 mL/min (70-130); Carbon Dioxide 16 mmol/L (23-31); Chloride 103 mmol/L (98-107); Estimated GFR 36; Globulin 2.8 g/dL (2.4-3.5); Glucose 120 mg/dL (83-110); Lipase 10 U/L (8-78); Magnesium 1.8 mg/dL (1.6-2.6); Potassium 3.3 mmol/L (3.5-5.1); Protein, Total 5.2 g/dL (5.8-8.1); Sodium 129 mmol/L (136-145)
[2024-09-05 13:51] LABS: Troponin I 0.747 ng/mL (< 0.028)
[2024-09-05] MEDS ORDERED: Midazolam HCl 5 mg/ml Vial ONE (13:58)
[2024-09-05] MEDS ORDERED: Ventilator Sedation Protocol 1 EACH FS ONE (14:30)
[2024-09-05] MEDS ORDERED: Electrolyte Replacement Protocol 1 EACH FS ONE (14:30)
[2024-09-05] MEDS ORDERED: Morphine 2 MG/ML VIAL SLOW IVP PRN (14:45)
[2024-09-05] MEDS ORDERED: Lorazepam 2 MG/ML VIAL SLOW IVP PRN (14:45)
[2024-09-05] MEDS ORDERED: DISCONTINUE PREVIOUS NARCOTIC PAIN MEDICATIONS AND BENZODIAZEPINES FS SCH (14:45)
[2024-09-05] MEDS ORDERED: Fentanyl BOLUS 250 ML IVPB PRN (14:45)
[2024-09-05] MEDS ORDERED: Propofol BOLUS 1,000 MG/100 ML VIAL IV PRN (14:45)
[2024-09-05] MEDS ORDERED: Electrolyte Replacement Protocol FS PRN (14:45)
[2024-09-05] MEDS ORDERED: Aspirin 300 MG Suppository ONE (14:59)
[2024-09-05] MEDS ORDERED: Heparin 5,000 UNITS/ML VIAL ONE (15:12)
[2024-09-05] MEDS ORDERED: Heparin 25,000 units/D5W 500 ML ONE (15:12)
[2024-09-05 15:36] LABS: INR-International Normal Ratio 1.3; Prothrombin Time 16.6 sec (12.0-14.7)
[2024-09-05 15:37] LABS: PTT 39.6 sec (22.9-36.1)
[2024-09-05 17:19] LABS: Critical Call Chem Troponin I RESULT DECREASING
[2024-09-05] MEDS: Ipratropium/Albuterol 3 ML NEB NEB SCH (17:29)
[2024-09-05 17:39] VITALS: BMI 28.2
[2024-09-05] MEDS ORDERED: Heparin 10,000 UNITS/ 10 ML VIAL SLOW IVP SCH (18:00)
[2024-09-05] MEDS ORDERED: Heparin 25,000 units/D5W 500 ML IV SCH (18:00)
[2024-09-05] MEDS: LevoFLOXacin 750 mg/D5W 750 MG in Premix 1 BAG IVPB SCH (18:41)
[2024-09-05] MEDS: Potassium Chloride 20 MEQ in Premix 1 BAG IVPB SCH (18:42)
[2024-09-05] MEDS: methylPREDNISolone Sod Succ 40 MG VIAL IVP SCH (18:42)
[2024-09-05] MEDS: Sodium Chloride 0.9% 1,000 ML IV SCH (18:43)
[2024-09-05] MEDS: Magnesium 2 GM/50 ML(in water) 2 GM in Premix 1 BAG IVPB SCH (18:51)
[2024-09-05] MEDS ORDERED: Bisacodyl 5 MG TAB PO PRN (19:06)
[2024-09-05] MEDS ORDERED: Ondansetron PF 4 MG/2 ML Vial IVP PRN (19:06)
[2024-09-05] MEDS ORDERED: Acetaminophen 650 MG Suppository PR PRN (19:06)
[2024-09-05] MEDS ORDERED: Acetaminophen 325 MG TAB PO PRN (19:06)
[2024-09-05] MEDS ORDERED: Magnesium 2 GM/50 ML(in water) 2 GM in Premix 1 BAG IVPB SCH (19:30)
[2024-09-05 19:32] LABS: Critical Call Chem Troponin I RESULT DECREASING; Troponin I 0.358 ng/mL (< 0.028)
[2024-09-05] MEDS ORDERED: Potassium Chloride 20 MEQ in Premix 1 BAG IVPB SCH (20:00)
[2024-09-05] MEDS: Propofol 1,000 MG/100 ML VIAL IV PRN (20:07)
[2024-09-05] MEDS: Famotidine/PF 20 mg/2ml Vial SLOW IVP SCH (20:07)
[2024-09-06] MEDS: Cefepime 1 GM in Sodium Chloride 0.9% 100 ML IVPB SCH (00:17)
[2024-09-06] MEDS: Fentanyl CADD 100 ML IV SCH (01:31)
[2024-09-06] MEDS: NOREPINEPHRINE 8 MG/250 ML-D5W 250 ML IVPB SCH (01:33)
[2024-09-06 05:02] LABS: #Basophils Less than 0.03 10x3/uL (0.0-0.2); #Eosinophils Less than 0.03 10x3/uL (0.0-0.7); %Basophils 0.1 % (0.0-1.0); %Lymphocytes 4.9 % (21.0-51.0); %Monocytes 3.4 % (0.0-10.0); %Neutrophils 90.9 % (42.0-75.0); Hematocrit 32.1 % (42.0-52.0); Hemoglobin 11.2 g/dL (14.0-18.0); Mean Corpuscular HGB CONC 34.9 g/dL (32.0-36.0); Mean Corpuscular Hemoglobin 30.4 pg (27.0-31.0); Platelet Count 252 10x3/uL (130-400); RBC Distribution Width 13.8 % (11.5-14.5); Red Blood Cell (RBC) Count 3.69 mill/uL (4.70-6.10)
[2024-09-06 05:10] LABS: ALT (SGPT) 17 U/L (8-55); AST (SGOT) 30 U/L (5-34); Albumin 2.1 g/dL (3.4-4.8); Alkaline Phosphatase 57 U/L (40-110); Anion Gap 14 mmol/L (10-20); BUN (Urea Nitrogen) 35 mg/dL (8.4-25.7); Bilirubin, Total 0.5 mg/dL (0.2-1.2); Calc. Creatinine Clearance 49 mL/min (70-130); Calcium 7.9 mg/dL (7.8-10.44); Carbon Dioxide 15 mmol/L (23-31); Chloride 107 mmol/L (98-107); Estimated GFR 46; Globulin 3.1 g/dL (2.4-3.5); Glucose 172 mg/dL (83-110); Potassium 3.8 mmol/L (3.5-5.1); Protein, Total 5.2 g/dL (5.8-8.1); Sodium 132 mmol/L (136-145)
[2024-09-06 08:13] LABS: Actual Bicarbonate (HCO3a) 16.6 mEq/L (22-28); Base Excess (BEa) -9.1 mEq/L (-2.0 to +3.0); Calcium, Ionized (arterial) 1.15 mmol/L (1.12-1.30); Carboxyhemoglobin (COHb) 0.4 gm% (0.0-3.0); Hematocrit-ABG 35 % (42.0-52.0); Hemoglobin (Hb) 11.8 g/dL (14.0-18.0); O2 Tension (PaO2), arterial 76.8 mmHg (> 60.0); Potassium - ABG Lab 3.69 mmol/L (3.70-5.30); pH, Arterial 7.293 (7.35-7.45)
[2024-09-06 08:20] LABS: Puncture Site Left Radial artery
[2024-09-06] MEDS: Cefepime 2 GM in Sodium Chloride 0.9% 100 ML IVPB SCH (11:27)
[2024-09-07] MEDS ORDERED: methylPREDNISolone Sod Succ 40 MG VIAL ONE (21:00)
[2024-09-07] MEDS ORDERED: Famotidine/PF 20 mg/2ml Vial ONE (21:00)
[2024-09-08] MEDS ORDERED: Cefepime 2 GM VIAL ONE ×2 (01:00→12:00)
[2024-09-08] MEDS ORDERED: methylPREDNISolone Sod Succ 40 MG VIAL ONE ×2 (06:00→12:00)
[2024-09-08] MEDS ORDERED: Famotidine/PF 20 mg/2ml Vial ONE (09:00)
[2024-09-08] MEDS ORDERED: Vancomycin (BATCH) 1.25 GM/250 ML BAG ONE ×2 (14:00→23:00)
[2024-09-08] MEDS: hydrALAZINE 20 MG/ML VIAL SLOW IVP PRN (17:27)
[2024-09-08] MEDS ORDERED: hydrALAZINE 20 MG/ML VIAL ONE (17:27)
[2024-09-08] MEDS ORDERED: Metoprolol Tartrate 5 MG (5 mL) VIAL ONE (17:27)
[2024-09-08] MEDS ORDERED: Ipratropium/Albuterol 3 ML NEB NEB PRN (17:54)
[2024-09-08] MEDS: Metoprolol Tartrate 5 MG (5 mL) VIAL IVP SCH (17:57)
[2024-09-08] MEDS: Morphine 2 MG/ML VIAL SLOW IVP PRN (18:35)
[2024-09-08] MEDS: Magnesium 2 GM/50 ML BAG (IN WATER) ONE (22:35)
[2024-09-08] MEDS: Famotidine/PF 20 mg/2ml Vial ONE ×2 (22:35→22:37)
[2024-09-08] MEDS: Dexmedetomidine In 0.9 % NaCl 100 ML ONE (22:36)
[2024-09-08] MEDS: hydrALAZINE 20 MG/ML VIAL ONE (22:37)
[2024-09-08] MEDS: Morphine 2 MG/ML VIAL ONE (22:37)
[2024-09-08] MEDS: DC Sedation Protocol FS ONE (22:37)
[2024-09-08] MEDS: Metoprolol Tartrate 5 MG (5 mL) VIAL ONE (22:37)
[2024-09-08] MEDS: Vancomycin (BATCH) 1.25 GM in Premix 1 BAG IVPB SCH (22:41)
[2024-09-09] MEDS: Dexmedetomidine In 0.9 % NaCl 100 ML ONE ×2 (00:37→07:59)
[2024-09-09] MEDS ORDERED: methylPREDNISolone Sod Succ 40 MG VIAL ONE (00:41)
[2024-09-09 01:06] LABS: #Basophils 0.01 10x3/uL (0.0-0.2); #Monocytes 0.44 10x3/uL (0.11-0.59); #Neutrophils 9.72 10x3/uL (1.40-6.50); %Basophils 0.1 % (0.0-1.0); %Lymphocytes 4.9 % (21.0-51.0); %Monocytes 4.1 % (0.0-10.0); %Neutrophils 90.2 % (42.0-75.0); Mean Corpuscular HGB CONC 34.4 g/dL (32.0-36.0); Mean Corpuscular Hemoglobin 30.4 pg (27.0-31.0); Mean Corpuscular Volume 88.4 fL (78.0-98.0); Mean Platelet Volume 10.2 fL (7.4-10.4); Platelet Count 247 10x3/uL (130-400); RBC Distribution Width 13.8 % (11.5-14.5); Red Blood Cell (RBC) Count 3.62 mill/uL (4.70-6.10); White Blood Cell (WBC) Count 10.78 10x3/uL (4.8-10.8)
[2024-09-09 02:59] LABS: #Basophils Less than 0.03 10x3/uL (0.0-0.2); #Eosinophils Less than 0.03 10x3/uL (0.0-0.7); %Basophils 0.1 % (0.0-1.0); %Lymphocytes 3.9 % (21.0-51.0); %Monocytes 6.3 % (0.0-10.0); %Neutrophils 88.7 % (42.0-75.0); Hematocrit 35.6 % (42.0-52.0); Hemoglobin 12.3 g/dL (14.0-18.0); Mean Corpuscular HGB CONC 34.6 g/dL (32.0-36.0); Mean Corpuscular Hemoglobin 30.1 pg (27.0-31.0); Mean Platelet Volume 10.1 fL (7.4-10.4); Platelet Count 271 10x3/uL (130-400); RBC Distribution Width 13.9 % (11.5-14.5); Red Blood Cell (RBC) Count 4.09 mill/uL (4.70-6.10)
[2024-09-09 03:57] LABS: Vancomycin, Random 41.6 ug/mL (See Comment)
[2024-09-09] MEDS: Famotidine/PF 20 mg/2ml Vial ONE ×2 (08:30→21:11)
[2024-09-09 09:01] LABS: Phosphorus 3.4 mg/dL (2.3-4.7)
[2024-09-09 09:05] LABS: ALT (SGPT) 16 U/L (8-55); AST (SGOT) 15 U/L (5-34); Albumin 2.4 g/dL (3.4-4.8); Alkaline Phosphatase 55 U/L (40-110); Anion Gap 14 mmol/L (10-20); BUN (Urea Nitrogen) 51 mg/dL (8.4-25.7); Bilirubin, Total 0.4 mg/dL (0.2-1.2); Calc. Creatinine Clearance 53 mL/min (70-130); Calcium 8.4 mg/dL (7.8-10.44); Carbon Dioxide 15 mmol/L (23-31); Chloride 110 mmol/L (98-107); Estimated GFR 48; Glucose 142 mg/dL (83-110); Potassium 3.5 mmol/L (3.5-5.1); Protein, Total 5.4 g/dL (5.8-8.1); Sodium 135 mmol/L (136-145)
[2024-09-09 09:15] VITALS: BMI 29.0
[2024-09-09] MEDS: Labetalol HCl 100 MG/20 ML VIAL SLOW IVP PRN (10:08)
[2024-09-09 13:54] LABS: ALT (SGPT) 16 U/L (8-55); AST (SGOT) 19 U/L (5-34); Albumin 2.6 g/dL (3.4-4.8); Alkaline Phosphatase 57 U/L (40-110); Anion Gap 16 mmol/L (10-20); BUN (Urea Nitrogen) 39 mg/dL (8.4-25.7); Bilirubin, Total 0.5 mg/dL (0.2-1.2); Calc. Creatinine Clearance 69 mL/min (70-130); Calcium 8.8 mg/dL (7.8-10.44); Carbon Dioxide 11 mmol/L (23-31); Chloride 115 mmol/L (98-107); Estimated GFR 67; Glucose 107 mg/dL (83-110); Potassium 3.6 mmol/L (3.5-5.1); Protein, Total 5.6 g/dL (5.8-8.1); Sodium 138 mmol/L (136-145)
[2024-09-09] MEDS: Potassium Chloride 20 MEQ in Premix 1 BAG IVPB SCH (14:27)
[2024-09-09] MEDS: niCARdipine 25 MG/10 ML SDV ONE (14:27)
[2024-09-09] MEDS: niCARdipine 25 MG in Sodium Chloride 0.9% 250 ML 250 ML IVPB SCH (14:28)
[2024-09-09] MEDS: Potassium Chloride 20 MEQ TAB PO SCH (14:35)
[2024-09-09] MEDS: Lisinopril 5 MG TAB PO SCH (15:54)
[2024-09-09] MEDS: Sertraline 25 MG TAB PO SCH (15:54)
[2024-09-09] MEDS: Carvedilol 6.25 MG TAB PO SCH (15:58)
[2024-09-09] MEDS: Dexmedetomidine In 0.9 % NaCl 100 ML IV SCH (16:45)
[2024-09-09] MEDS ORDERED: Non-Formulary Item 1 EACH (Carvedilol [Coreg] 12.5 MG Tab) PO SCH (17:00)
[2024-09-09 17:42] LABS: Magnesium 2.3 mg/dL (1.6-2.6)
[2024-09-09] MEDS: Tamsulosin HCl 0.4 MG CAP PO SCH (20:38)
[2024-09-09] MEDS: Enoxaparin 100 MG (1 mL) SYRINGE SC SCH (20:38)
[2024-09-09] MEDS ORDERED: Vancomycin HCl 750 MG in Sodium Chloride 0.9% 250 ML 250 ML IVPB SCH (21:00)
[2024-09-09 21:39] LABS: ALT (SGPT) 28 U/L (8-55); AST (SGOT) 27 U/L (5-34); Albumin 2.6 g/dL (3.4-4.8); Alkaline Phosphatase 52 U/L (40-110); Anion Gap 14 mmol/L (10-20); BUN (Urea Nitrogen) 35 mg/dL (8.4-25.7); Bilirubin, Total 0.6 mg/dL (0.2-1.2); Calc. Creatinine Clearance 76 mL/min (70-130); Calcium 8.7 mg/dL (7.8-10.44); Carbon Dioxide 16 mmol/L (23-31); Chloride 116 mmol/L (98-107); Estimated GFR 75; Glucose 118 mg/dL (83-110); Potassium 3.6 mmol/L (3.5-5.1); Protein, Total 5.6 g/dL (5.8-8.1); Sodium 142 mmol/L (136-145)
[2024-09-10 05:09] LABS: Vancomycin, Random 19.5 ug/mL (See Comment)
[2024-09-10 05:10] LABS: Anion Gap 14 mmol/L (10-20); BUN (Urea Nitrogen) 35 mg/dL (8.4-25.7); Calc. Creatinine Clearance 84 mL/min (70-130); Calcium 8.8 mg/dL (7.8-10.44); Carbon Dioxide 15 mmol/L (23-31); Chloride 115 mmol/L (98-107); Estimated GFR 82; Glucose 127 mg/dL (83-110); Potassium 3.2 mmol/L (3.5-5.1); Sodium 141 mmol/L (136-145)
[2024-09-10] MEDS: Potassium Bicarbonate/Cit Ac 20 MEQ TAB PO SCH (08:09)
[2024-09-10] MEDS: Famotidine/PF 20 mg/2ml Vial ONE ×2 (08:12→20:20)
[2024-09-10] MEDS: Morphine 2 MG/ML VIAL SLOW IVP PRN (08:34)
[2024-09-10 12:04] LABS: Magnesium 2.3 mg/dL (1.6-2.6)
[2024-09-10] MEDS ORDERED: LevoFLOXacin 750 mg/D5W 750 MG in Premix 1 BAG IVPB SCH (15:00)
[2024-09-10] MEDS: Potassium Chloride 20 MEQ in Premix 1 BAG IVPB SCH ×2 (15:25→21:08)
[2024-09-10] MEDS: methylPREDNISolone Sod Succ 40 MG VIAL IVP SCH (16:52)
[2024-09-10] MEDS: Amiodarone 200 MG TAB PO SCH (21:57)
[2024-09-10 23:50] LABS: Magnesium 2.2 mg/dL (1.6-2.6)
[2024-09-11] MEDS: Sodium Bicarb 50 MEQ/50 ML Abboject 8.4% SYRINGE IVP SCH (00:27)
[2024-09-11] MEDS: Famotidine/PF 20 mg/2ml Vial ONE (08:51)
[2024-09-11] MEDS: Potassium Chloride 20 MEQ TAB PO SCH ×3 (08:54→18:51)
[2024-09-11 10:15] LABS: Hematocrit 34.4 % (42.0-52.0); Hemoglobin 11.7 g/dL (14.0-18.0); Mean Corpuscular Hemoglobin 30.2 pg (27.0-31.0); Mean Corpuscular Volume 88.7 fL (78.0-98.0); Mean Platelet Volume 9.6 fL (7.4-10.4); Platelet Count 407 10x3/uL (130-400); RBC Distribution Width 14.6 % (11.5-14.5); Red Blood Cell (RBC) Count 3.88 mill/uL (4.70-6.10)
[2024-09-11 10:31] LABS: Anion Gap 13 mmol/L (10-20); BUN (Urea Nitrogen) 40 mg/dL (8.4-25.7); Calc. Creatinine Clearance 77 mL/min (70-130); Calcium 9.3 mg/dL (7.8-10.44); Carbon Dioxide 18 mmol/L (23-31); Chloride 115 mmol/L (98-107); Estimated GFR 74; Glucose 141 mg/dL (83-110); Potassium 3.6 mmol/L (3.5-5.1); Sodium 142 mmol/L (136-145)
[2024-09-11] MEDS: Potassium Chloride 20 MEQ in Premix 1 BAG IVPB SCH (14:27)
[2024-09-11 17:59] VITALS: BP 95/56
[2024-09-11] MEDS: Lactated Ringer's 500 ML IV SCH ×2 (18:15→20:28)
[2024-09-11] MEDS ORDERED: NOREPINEPHRINE 8 MG/250 ML-D5W 250 ML IVPB SCH ×4 (20:15→21:30)
[2024-09-11] MEDS: Albumin 25% 25 GM (100 mL) BOT IVPB SCH (20:36)
[2024-09-11] MEDS: Famotidine/PF 20 mg/2ml Vial SLOW IVP SCH (20:59)
[2024-09-11 21:39] VITALS: TEMP 96.5
[2024-09-11] MEDS: Norepinephrine 16 MG in Dextrose 5% in Water 234 ML IVPB PRN (21:54)
[2024-09-12] MEDS: Sodium Bicarb 50 MEQ/50 ML Abboject 8.4% SYRINGE IVP SCH ×2 (00:19→01:15)
[2024-09-12 00:48] LABS: Lactic Acid 6.35 mmol/L (0.5-2.2)
[2024-09-12 00:49] LABS: ALT (SGPT) 46 U/L (8-55); AST (SGOT) 52 U/L (5-34); Albumin 2.7 g/dL (3.4-4.8); Alkaline Phosphatase 38 U/L (40-110); Anion Gap 17 mmol/L (10-20); BUN (Urea Nitrogen) 54 mg/dL (8.4-25.7); Bilirubin, Total 1.1 mg/dL (0.2-1.2); Calc. Creatinine Clearance 45 mL/min (70-130); Calcium 8.9 mg/dL (7.8-10.44); Carbon Dioxide 13 mmol/L (23-31); Chloride 116 mmol/L (98-107); Estimated GFR 38; Globulin 1.8 g/dL (2.4-3.5); Glucose 146 mg/dL (83-110); Potassium 4.8 mmol/L (3.5-5.1); Protein, Total 4.5 g/dL (5.8-8.1); Sodium 141 mmol/L (136-145)
[2024-09-12 01:23] LABS: Hematocrit 19.9 % (42.0-52.0); Hemoglobin 6.5 g/dL (14.0-18.0); Mean Corpuscular HGB CONC 32.7 g/dL (32.0-36.0); Mean Corpuscular Hemoglobin 30.1 pg (27.0-31.0); Mean Corpuscular Volume 92.1 fL (78.0-98.0); Mean Platelet Volume 9.9 fL (7.4-10.4); Platelet Count 299 10x3/uL (130-400); RBC Distribution Width 15.1 % (11.5-14.5); Red Blood Cell (RBC) Count 2.16 mill/uL (4.70-6.10)
[2024-09-12 01:58] LABS: Elliptocytes SLIGHT = 2-5 cells HPF (0-1); Hypochromia SLIGHT = 6-15 cells HPF (0-5); Large Platelets 3.9 % (0-5); Lymphocytes 12 % (21-51); Macrocytosis SLIGHT = 6-15 cells HPF (0-5); Metamyelocyte 3 % (0-0); Microcytosis SLIGHT = 6-15 cells HPF (0-5); Monocytes 4 % (0-10); Neutrophil 82 % (42-75); Ovalocytes SLIGHT = 2-5 cells HPF (0-1); Platelet Adequacy Comment Platelets Normal; Polychromasia SLIGHT = 2-3 cells HPF (0-2); Smudge Cells 1.9 %
[2024-09-12] MEDS: Vasopressin In 0.9 % NaCl 0 ML ONE (02:14)
[2024-09-13 12:00] LABS: ALT (SGPT) 16 U/L (8-55); AST (SGOT) 15 U/L (5-34); Albumin 2.4 g/dL (3.4-4.8); Alkaline Phosphatase 55 U/L (40-110); Anion Gap 14 mmol/L (10-20); BUN (Urea Nitrogen) 51 mg/dL (8.4-25.7); Bilirubin, Total 0.4 mg/dL (0.2-1.2); Calc. Creatinine Clearance 54 mL/min (70-130); Calcium 8.4 mg/dL (7.8-10.44); Carbon Dioxide 15 mmol/L (23-31); Chloride 110 mmol/L (98-107); Estimated GFR 48; Glucose 142 mg/dL (83-110); Potassium 3.5 mmol/L (3.5-5.1); Protein, Total 5.4 g/dL (5.8-8.1); Sodium 135 mmol/L (136-145)
== END 2024-09-12 02:13 | disposition expired | DRG 871 ==
LOC: ERS 11:39 → ERHOLD 14:28 → CCU 17:27
PROVIDERS: ADMIT Internal Medicine; ATTEND Internal Medicine
PROC: 05HM33Z Insertion of Infusion Device into Right Internal Jugular Vein, Percutaneous Approach (ICD-10-PCS; principal; 2024-09-05)
PROC: 3E033XZ Introduction of Vasopressor into Peripheral Vein, Percutaneous Approach (ICD-10-PCS; 2024-09-05)
PROC: 3E03329 Introduction of Other Anti-infective into Peripheral Vein, Percutaneous Approach (ICD-10-PCS; 2024-09-05)
PROC: 5A1945Z Respiratory Ventilation, 24-96 Consecutive Hours (ICD-10-PCS; 2024-09-05)
PROC: 30233J1 Transfusion of Nonautologous Serum Albumin into Peripheral Vein, Percutaneous Approach (ICD-10-PCS; 2024-09-11)
PROC: 06HY33Z Insertion of Infusion Device into Lower Vein, Percutaneous Approach (ICD-10-PCS; 2024-09-12)
DX: A41.9 Sepsis, unspecified organism (principal); G93.41 Metabolic encephalopathy; J18.9 Pneumonia, unspecified organism; J96.01 Acute respiratory failure with hypoxia; R65.21 Severe sepsis with septic shock; I21.A1 Myocardial infarction type 2; E87.20 Acidosis, unspecified; E87.1 Hypo-osmolality and hyponatremia; E78.5 Hyperlipidemia, unspecified; I11.0 Hypertensive heart disease with heart failure; I50.9 Heart failure, unspecified; I25.10 Atherosclerotic heart disease of native coronary artery without angina pectoris; I16.0 Hypertensive urgency; E87.6 Hypokalemia; Z66 Do not resuscitate; Z95.0 Presence of cardiac pacemaker; Z96.651 Presence of right artificial knee joint; Z85.46 Personal history of malignant neoplasm of prostate; Z98.890 Other specified postprocedural states; I48.0 Paroxysmal atrial fibrillation; Z79.01 Long term (current) use of anticoagulants; Z79.899 Other long term (current) drug therapy; E66.9 Obesity, unspecified; Z68.29 Body mass index [BMI] 29.0-29.9, adult
CPT/HCPCS: 31500; 36415; 36556; 36600; 51702; 70450; 71045; 80048; 80053; 80202; 81001; 82565; 82805; 83605; 83690; 83735; 83880; 84100; 84145; 84484; 85025; 85027; 85610; 85730; 87040; 87077; 87086; 87149; 93005; 93010; 94002; 94003; 94760; 96361; 96365; 96366; 96375; 99292; J0360; J0692; J1644; J1650; J1956; J2250; J2272; J2704; J2919; J3010; J3370; J3475; J3480; J3490; J7030; J7050; J7070; J7120; J7620; P9047